=== PATIENT | female | born 1980 | race Caucasian/White ===

== ENCOUNTER 2016-11-09 12:15 | Outpatient (CLI) | payer BC, MEDICAID ==
[~2016-11-09] VITALS: Ht 160 cm; Wt 117.3 kg
[2016-11-09] MEDS ORDERED: PRENATAL1 TA7 PO (12:19)
[2016-11-09] MEDS ORDERED: VITAMIN D 400400 IU PO (12:20)
[2016-11-09] MEDS ORDERED: NATURAL IRON65 MG PO (12:20)
[2016-11-09 12:30] VITALS: BP 120/62; PULSE 75; TEMP 98.6
[2016-11-09 13:08] VITALS: BP 117/60; PULSE 67
== END 2016-11-09 13:20 | disposition home or self-care (01) ==
LOC: LDRO 12:15
DX: O36.8130 Decreased fetal movements, third trimester, not applicable or unspecified (principal); Z3A.28 28 weeks gestation of pregnancy

== ENCOUNTER → 2016-11-16 | Outpatient (CLI) | payer BC, MEDICAID ==
[~2016-11-16] MED LIST: NATURAL IRON65 MG PO; PRENATAL1 TA7 PO; VITAMIN D 400400 IU PO
== END ==
LOC: SUN.DIA 08:41
DX: O24.419 Gestational diabetes mellitus in pregnancy, unspecified control (principal); Z3A.30 30 weeks gestation of pregnancy; Z71.3 Dietary counseling and surveillance
CPT/HCPCS: G0108

== ENCOUNTER → 2016-11-25 | Outpatient (CLI) | payer BC, MEDICAID | LOC: SUN.DIA 08:31 | DX: O24.419 Gestational diabetes mellitus in pregnancy, unspecified control (principal); Z3A.32 32 weeks gestation of pregnancy; Z71.3 Dietary counseling and surveillance; Z87.891 Personal history of nicotine dependence | CPT/HCPCS: G0108 ==

== ENCOUNTER 2016-12-09 12:40 | Inpatient (IN) | payer BC, MEDICAID ==
[~2016-12-09] VITALS: Ht 157.5 cm; Wt 119.5 kg
[2017-01-28] VITALS (19 sets, daily range): BP systolic 92–123; BP diastolic 52–74; PULSE 50–78; TEMP 97.6–98.4
[2017-01-28 07:32] LABS: BASO % 0.3 % (0.0-2.0); EOS # 0.1 (0.0-0.7); EOS % 1.5 % (0-4.0); GRAN # 5.6 (1.4-6.5); GRAN % 76.7 % (42.2-75.2); LYMPH # 1.2 (1.2-3.4); LYMPH % 15.8 % (20.0-51.0); MEAN CELL VOLUME 76 fl (80.0-100.0); MEAN CORPUSCULAR HGB CONC 31 g/dl (33.0-37.0); MEAN PLATELET VOLUME 11.8 fl (7.4-10.4); MONO # 0.4 (0.1-0.6); PLATELET COUNT 213 K/mm3 (130-400); RED BLOOD COUNT 4.28 M/mm3 (4.10-5.30); REDCELL DISTRIBUTION WIDTH-CV 16.2 % (11.5-14.5); WHITE BLOOD COUNT 7.3 K/mm3 (4.8-10.8)
[2017-01-28 07:34] LABS: HEMATOCRIT 32.4 % (37.0-47.0); HEMOGLOBIN 10.1 g/dl (12.5-16.0); MEAN CORPUSCULAR HEMOGLOBIN 24 pg (27.0-31.0)
[2017-01-29 03:30] VITALS: BP 93/49; PULSE 65; TEMP 97.5
[2017-01-29] MEDS ORDERED: IBU800 M1 PO (08:43)
[2017-01-29] MEDS ORDERED: PERCOCET 325 MG1 TA2 PO (08:44)
[2017-01-29 09:00] VITALS: BP 106/50; PULSE 61; TEMP 97.9
[2017-01-29 11:42] VITALS: BP 147/74; PULSE 88; TEMP 97.8
[2017-01-29 16:11] VITALS: BP 121/81; PULSE 76; TEMP 97.6
[2017-01-29 20:35] VITALS: BP 140/79; PULSE 83; TEMP 98.5
[2017-01-30 10:38] VITALS: BP 134/79; PULSE 76
[2017-01-30 16:50] VITALS: BP 129/57; PULSE 73; TEMP 98.5
[2017-01-30 20:04] VITALS: BP 128/70; PULSE 77; TEMP 98.7
[2017-01-31 08:12] VITALS: BP 128/63; PULSE 60; TEMP 97.9
[2017-01-31 16:40] VITALS: BP 117/60; PULSE 59; TEMP 97.8
[2017-01-31 20:05] VITALS: BP 144/76; PULSE 83; TEMP 97.5
[2017-02-01 07:00] VITALS: BP 117/60; PULSE 70; TEMP 97.5
== END 2017-02-01 12:20 | disposition home or self-care (01) | DRG 765 ==
LOC: EDSTATUS 12-26 06:36 → LDRO 12-26 12:40 → OB 01-28 05:41 → LDR 01-28 06:39 → OB 02-01 12:20
PROVIDERS: Obstetrics & Gynecology
PROC: 10D00Z1 Extraction of Products of Conception, Low, Open Approach (ICD-10-PCS; principal; 2017-01-28)
DX: O24.420 Gestational diabetes mellitus in childbirth, diet controlled (principal); O75.3 Other infection during labor; N30.10 Interstitial cystitis (chronic) without hematuria; O48.0 Post-term pregnancy; O99.344 Other mental disorders complicating childbirth; F43.12 Post-traumatic stress disorder, chronic; F20.9 Schizophrenia, unspecified; Z3A.40 40 weeks gestation of pregnancy; Z37.0 Single live birth
CPT/HCPCS: J0690; J1885; J2270; J2405; J2590; J2704; J7120

== ENCOUNTER 2017-08-11 14:46 | Outpatient (RCR) | payer OTHER ==
[~2017-08-11 14:46] MED LIST changes: +IBU800 M1 PO; +PERCOCET 325 MG1 TA2 PO
== END 2017-10-31 | disposition home or self-care (01) ==
LOC: WSOH
DX: M79.645 Pain in left finger(s) (principal)

== ENCOUNTER 2018-07-18 05:26 | Inpatient (IN) | payer BC ==
[2018-07-18] VITALS (16 sets, daily range): BP systolic 96–131; BP diastolic 46–78; PULSE 58–79; TEMP 97.6–98.2
[~2018-07-18] VITALS: Ht 157.6 cm; Wt 122.7 kg
[~2018-07-18 05:26] MED LIST changes: +ATIVAN0.5 MG PO; +BYSTOLIC PO; +CEFTIN 250250 MG/TAB PO; +CLARINEX 5MG5 MG PO; +FLEXERIL5 MG PO; +FLONASE NASAL S16 GM NS; +GEODON60 MG PO; +HCTZ12.5TAB PO; +LEVAQUIN 750MG750 M1 PO; +LORTAB 5/500 501 TAB PO; +MAGIC MOUTH PO; +MERIDIA10 MG PO; +MOTRIN800 MG PO; +NEURONTIN300 MG/CAP PO; +NO HOME MEDICATIONS; +NORCO 325 MG-51 TAB PO; +PHENTERMINE15 MG PO; +SAVELLA50 MG PO; +Tramadol; +ULTRAM 50MG TAB50 MG PO; +VICODIN 5/5001 UDTAB PO; +VITAMIN D5000 IU PO; +VITAMIN D50000 IU PO; +ZITHROMAX 250M250 MG PO; +ZOFRAN 4MG T4 MG/TAB PO; +vitamin d PO; +zpack
--- NOTE | 2018-07-18 05:40 | NUR ---
Ambulatory to unit for repeat scheduled C/S, accompanied by spouse and toddler. Oriented to room, plan of care.
--- NOTE | 2018-07-18 05:55 | NUR ---
Difficult to maintain EFM tracing r/t pt's body habitus.
[2018-07-18] MEDS ORDERED: FERROUSGLUC256MG (06:41)
[2018-07-18] MEDS ORDERED: VITAMIN D31000 I1 PO (06:43)
[2018-07-18 07:01] LABS: BASO % 0.1 % (0.0-2.0); EOS # 0.1 (0.0-0.7); GRAN # 5.5 (1.4-6.5); GRAN % 80.9 % (42.2-75.2); LYMPH # 0.9 (1.2-3.4); LYMPH % 13.9 % (20.0-51.0); MEAN CELL VOLUME 76 fl (80.0-100.0); MEAN CORPUSCULAR HEMOGLOBIN 24 pg (27.0-31.0); MEAN CORPUSCULAR HGB CONC 31 g/dl (33.0-37.0); MEAN PLATELET VOLUME 12.1 fl (7.4-10.4); MONO # 0.3 (0.1-0.6); MONO % 3.7 % (1.7-9.3); PLATELET COUNT 235 K/mm3 (130-400); REDCELL DISTRIBUTION WIDTH-CV 15.7 % (11.5-14.5)
[2018-07-18 07:09] LABS: HEMATOCRIT 32.1 % (37.0-47.0)
--- NOTE | 2018-07-18 10:43 | NUR ---
Initial visit with Grand Father wishing him congratulations for the of his Grandson. Mom has not yet returned to her hospital room. Short Order Fry Cook will follow up later.
--- NOTE | 2018-07-18 19:17 | NUR ---
BEDSIDE REPORT RECEIVED FROM OFF GOING RN, ZEHRA Shoemaker. CARE TAKEN OVER BY THIS RN. FOB AND IN ROOM. BED IN LOW AND LOCKED POSITION. CALL LIGHT AND BELONGINGS IN REACH. PT SPOOL SALVAGER TO RESTOOM. DENIES FURTHER NEEDS.
[2018-07-19 01:24] VITALS: BP 133/77; PULSE 62; TEMP 97.6
--- NOTE | 2018-07-19 04:35 | NUR ---
Pt c/o pain with urination and thinks she may have a UTI. RN encouraged her to talk with physician in the morning when he makes rounds. RN will pass information on to on coming nurse to also discuss with physician.
[2018-07-19 08:10] VITALS: BP 106/54; PULSE 71; TEMP 97.8
--- NOTE | 2018-07-19 11:09 | NUR ---
Initial visit attempt; Family resting, Health Care Facilities Inspector left card of congratulations and information regarding the availability of spiritual care at [facility].
[2018-07-19 17:30] VITALS: BP 131/71; PULSE 67; TEMP 98
[2018-07-19 20:57] VITALS: BP 128/65; PULSE 74; TEMP 98.6
[2018-07-20 07:35] VITALS: BP 132/75; PULSE 75; TEMP 98.2
[2018-07-20] MEDS ORDERED: MOTRIN 600600 MG/TAB PO (08:42)
[2018-07-20] MEDS ORDERED: PERCOCET 325 MG1 TA2 PO (08:43)
[2018-07-20 16:10] VITALS: BP 140/85; PULSE 76; TEMP 98.6
[2018-07-20 21:00] VITALS: BP 121/55; PULSE 79; TEMP 97.6
[2018-07-21 07:54] VITALS: BP 105/60; PULSE 71; TEMP 97.7
== END 2018-07-21 12:20 | disposition home or self-care (01) | DRG 788 ==
LOC: OB 05:26
PROVIDERS: ADMIT Obstetrics & Gynecology
PROC: 10D00Z1 Extraction of Products of Conception, Low, Open Approach (ICD-10-PCS; principal; 2018-07-18)
DX: O34.211 Maternal care for low transverse scar from previous cesarean delivery (principal); N85.8 Other specified noninflammatory disorders of uterus; Z3A.39 39 weeks gestation of pregnancy; Z37.0 Single live birth; O24.420 Gestational diabetes mellitus in childbirth, diet controlled; O75.89 Other specified complications of labor and delivery; M79.7 Fibromyalgia; K58.9 Irritable bowel syndrome, unspecified; F43.10 Post-traumatic stress disorder, unspecified; N30.10 Interstitial cystitis (chronic) without hematuria; E55.9 Vitamin D deficiency, unspecified; F20.9 Schizophrenia, unspecified; O99.344 Other mental disorders complicating childbirth; F32.9 Major depressive disorder, single episode, unspecified; Z87.891 Personal history of nicotine dependence; Z88.1 Allergy status to other antibiotic agents; O99.214 Obesity complicating childbirth; B35.6 Tinea cruris
CPT/HCPCS: J0690; J1885; J2250; J2370; J2405; J2590; J3010; J7120

== ENCOUNTER → 2018-08-02 | Outpatient (CLI) | payer BC ==
[~2018-08-02] MED LIST changes: +FERROUSGLUC256MG; +MOTRIN 600600 MG/TAB PO; +VITAMIN D31000 I1 PO
--- NOTE | 2018-08-02 14:45 | NUR ---
Pt, Kelli Carrasco, presents for outpatient consult with 15 day old baby boy, Jacqui Carrasco. They were referred by Dr. Arias because Jhonatan weight below weight by 5%. Jacqui was born on [birth year]18 by c/section and weighed 8#13.1oz (4000 gms). He was discharged at 9% wt loss (8#0oz 3625 gms) on 07/20/18. He did recieve some formula supplement prior to discharge because of his weight. Pt feels like she has milk volume, and she is still nursing her 18 month old about 3 times daily. She states the nurses prior to the toddler feeding. Today Jacqui weighs 8#5oz (3772 gms), which pt reports is the same as his appointments yesterday with Dr. Arias and [facility]. She states he has eaten this morning at 0800, 1100,1150, 1230, 1300, and now at 1420. She also states he slept from midnight to 0800 this morning. She does not remember any feeding times from yesterday, nor does she know if her fed the baby at night. Supplement yesterday was 2oz formula after the doctor appt.; she states she gives him 1-2 bottles EBM daily, taking about 2-3oz each time if he does not latch on withing 5-10 minutes. Sometimes this is because he is sleepy or crying and not latching. She also states she can pump 4oz per breast, and does this about 2 times daily. Jody eagerly latches and breastfeeds bilaterally for a total of 20 minutes. He sounds like he is swallowing frequently during this time. After feeding he has a weight gain of 1.6oz (44 gms). Pt is advised to place Jacqui back to each breast as he is actively rooting. Weight gain after another 25 minutes of nursing only increased by another 12 gms. Tongue tie is noted, but he seems to hold the nipple in the mouth well. Pt does not c/o nipple soreness. Total gain after feeding is 2oz (56 gms). Jacqui is then supplemented 1oz formula by bottle. POC: Breastfeed every 3 hour, more often if baby is acting hungry. Supplement 1-2oz EBM or formula after . Pump as much as possible after . Recording sheets provided for pt to keep better record as she struggled with relaying the feeding history. FU: Dr. Arias on August 05. Pt is to contact this LC by phone or email re: weight on Wednesday, LC will follow up with pt after she returns to office on August 09. Pt verbalizes understanding, and indicate she will do her best while also taking care of 18 month old and trying to get FOB to assist in more ways.
== END ==
LOC: OLC 14:00
DX: Z39.1 Encounter for care and examination of lactating mother (principal); Z71.89 Other specified counseling

== ENCOUNTER → 2018-11-20 | Outpatient (CLI) | payer BC ==
[2018-11-20 15:01] LABS: ALBUMIN 4.1 gm/dL (3.5-5.0); BILIRUBIN,TOTAL 0.3 mg/dL (0.0-1.0); CALCIUM 9.2 mg/dL (8.4-10.2); CREATININE, serum 0.46 (0.52-1.25); POTASSIUM 4.1 mmol/L (3.4-5.0); TOTAL PROTEIN 7.6 gm/dL (6.4-8.2)
== END ==
LOC: COL.LAB 14:04
PROVIDERS: Family Medicine
DX: E55.9 Vitamin D deficiency, unspecified (principal); R73.03 Prediabetes

== ENCOUNTER 2019-01-13 15:00 | Outpatient (RCR) | payer BC | END 2019-02-13 | disposition home or self-care (01) | LOC: WSC | DX: M79.7 Fibromyalgia (principal) ==

== ENCOUNTER → 2019-02-14 | Outpatient (CLI) | payer BC ==
[2019-02-14 13:51] LABS: ALANINE AMINOTRANSFERASE 19 U/L (9-52); ALKALINE PHOSPHATASE 100 U/L (50-136); ANION GAP 10 mmol/L (7-16); AST,SGOT 22 U/L (15-37); BILIRUBIN,TOTAL < 0.1 mg/dL (0.0-1.0); BLOOD UREA NITROGEN 11 mg/dL (7-17); CALCIUM 8.9 mg/dL (8.4-10.2); CARBON DIOXIDE 25 mmol/L (22-30); CHLORIDE 103 mmol/L (98-107); CREATININE, serum 0.48 (0.52-1.25); GLUCOSE 142 mg/dL (74-106); POTASSIUM 3.9 mmol/L (3.4-5.0); SODIUM 139 mmol/L (137-145); TOTAL PROTEIN 7.2 gm/dL (6.4-8.2)
== END ==
LOC: COL.LAB 13:19
PROVIDERS: Family Medicine
DX: Z11.3 Encounter for screening for infections with a predominantly sexual mode of transmission (principal)

== ENCOUNTER → 2019-03-02 | Outpatient (CLI) | payer BC | LOC: COL.LAB 14:14 | DX: R30.0 Dysuria (principal) ==

== ENCOUNTER → 2019-03-07 | Outpatient (CLI) | payer BC | LOC: COL.LAB 15:32 | DX: R30.0 Dysuria (principal) ==

== ENCOUNTER → 2019-03-21 | Outpatient (CLI) | payer BC ==
[2019-03-21 16:26] LABS: COLLECTION METHOD CLEAN CATCH
[2019-03-21 16:40] LABS: BASO % 0.5 % (0.0-2.0); EOS # 0.1 (0.0-0.7); EOS % 1.7 % (0-4.0); GRAN # 6.1 (1.4-6.5); GRAN % 72.9 % (42.2-75.2); HEMATOCRIT 38.8 % (37.0-47.0); HEMOGLOBIN 12.3 g/dl (12.5-16.0); LYMPH # 1.8 (1.2-3.4); LYMPH % 21.3 % (20.0-51.0); MEAN CELL VOLUME 81 fl (80.0-100.0); MEAN CORPUSCULAR HEMOGLOBIN 26 pg (27.0-31.0); MEAN CORPUSCULAR HGB CONC 32 g/dl (33.0-37.0); MEAN PLATELET VOLUME 11.1 fl (7.4-10.4); MONO # 0.3 (0.1-0.6); MONO % 3.4 % (1.7-9.3); PLATELET COUNT 261 K/mm3 (130-400); RED BLOOD COUNT 4.79 M/mm3 (4.10-5.30); REDCELL DISTRIBUTION WIDTH-CV 13.4 % (11.5-14.5)
[2019-03-21 16:48] LABS: MUCOUS Present /lpf; PH 5 (5-8); URINE APPEARANCE Cloudy; URINE BACTERIA None Seen /hpf; URINE BILIRUBIN Negative (NEGATIVE); URINE BLOOD Negative (NEGATIVE); URINE COLOR Yellow; URINE GLUCOSE Negative (NEGATIVE); URINE KETONE Negative (NEGATIVE); URINE LEUKOCYTE ESTERASE 2+ (NEGATIVE); URINE NITRATE Negative (NEGATIVE); URINE PROTEIN(semi-quant) Negative (NEGATIVE); URINE UROBILINOGEN Negative (NEGATIVE)
== END ==
LOC: COL.LAB 15:13
PROVIDERS: Family Medicine
DX: Z32.00 Encounter for pregnancy test, result unknown (principal); D50.9 Iron deficiency anemia, unspecified; R73.03 Prediabetes; R39.9 Unspecified symptoms and signs involving the genitourinary system

== ENCOUNTER → 2019-05-16 | Outpatient (CLI) | payer BC | LOC: MHCPAIN 15:29 | DX: M47.817 Spondylosis without myelopathy or radiculopathy, lumbosacral region (principal); M54.16 Radiculopathy, lumbar region | CPT/HCPCS: G0463 ==

== ENCOUNTER → 2019-05-19 | Outpatient (CLI) | payer BC | LOC: MC.RAD 05-08 13:00 | DX: N64.89 Other specified disorders of breast (principal); R92.2 Inconclusive mammogram; N63.10 Unspecified lump in the right breast, unspecified quadrant; N63.20 Unspecified lump in the left breast, unspecified quadrant | CPT/HCPCS: G0279 ==

== ENCOUNTER 2019-07-05 15:15 | Outpatient (RCR) | payer BC | END 2019-07-24 | disposition home or self-care (01) | LOC: WSC | DX: M79.7 Fibromyalgia (principal); M54.5 Low back pain; G89.29 Other chronic pain ==

== ENCOUNTER 2019-12-23 17:36 | Emergency (ER) | payer BC ==
[~2019-12-23] VITALS: Ht 157.5 cm; Wt 118.2 kg
[2019-12-23 17:42] VITALS: BP 128/84; TEMP 98.9
[2019-12-23 18:49] LABS: BASO % 0.4 % (0.0-2.0); EOS # 0.1 (0.0-0.7); EOS % 1.4 % (0-4.0); GRAN # 6.5 (1.4-6.5); HEMATOCRIT 38.5 % (37.0-47.0); HEMOGLOBIN 12.1 g/dl (12.5-16.0); LYMPH # 1.5 (1.2-3.4); LYMPH % 17.9 % (20.0-51.0); MEAN CELL VOLUME 81 fl (80.0-100.0); MEAN CORPUSCULAR HEMOGLOBIN 26 pg (27.0-31.0); MEAN CORPUSCULAR HGB CONC 31 g/dl (33.0-37.0); MEAN PLATELET VOLUME 11.2 fl (7.4-10.4); MONO # 0.4 (0.1-0.6); MONO % 4.1 % (1.7-9.3); PLATELET COUNT 250 K/mm3 (130-400); RED BLOOD COUNT 4.73 M/mm3 (4.10-5.30); REDCELL DISTRIBUTION WIDTH-CV 13.7 % (11.5-14.5)
[2019-12-23 19:01] LABS: ALBUMIN 4.1 gm/dL (3.5-5.0); BILIRUBIN,TOTAL 0.3 mg/dL (0.0-1.0); C-REACTIVE PROTEIN 4.4 mg/dL (0.0-0.9); CALCIUM 9.1 mg/dL (8.4-10.2); CREATININE, serum 0.57 (0.52-1.25); POTASSIUM 3.6 mmol/L (3.4-5.0); TOTAL PROTEIN 7.8 gm/dL (6.4-8.2)
[2019-12-23] MEDS ORDERED: PREDNISONE20 MG PO (19:20)
[2019-12-23 19:41] VITALS: PULSE 80
== END 2019-12-23 19:43 | disposition home or self-care (01) ==
LOC: COL.ER 17:36
PROVIDERS: Emergency Medicine
DX: L29.9 Pruritus, unspecified (principal); Z32.02 Encounter for pregnancy test, result negative; Z88.1 Allergy status to other antibiotic agents; Z88.8 Allergy status to other drugs, medicaments and biological substances
CPT/HCPCS: J7512

== ENCOUNTER → 2020-01-16 | Outpatient (CLI) | payer BC ==
[~2020-01-16] MED LIST changes: +PREDNISONE20 MG PO
[2020-01-16 15:10] LABS: BASO % 0.4 % (0.0-2.0); EOS # 0.2 (0.0-0.7); EOS % 2.4 % (0-4.0); GRAN # 5.9 (1.4-6.5); GRAN % 74.3 % (42.2-75.2); HEMOGLOBIN 11.4 g/dl (12.5-16.0); LYMPH # 1.5 (1.2-3.4); LYMPH % 18.5 % (20.0-51.0); MEAN CELL VOLUME 81 fl (80.0-100.0); MEAN CORPUSCULAR HEMOGLOBIN 25 pg (27.0-31.0); MEAN CORPUSCULAR HGB CONC 32 g/dl (33.0-37.0); MEAN PLATELET VOLUME 10.8 fl (7.4-10.4); MONO # 0.3 (0.1-0.6); MONO % 3.9 % (1.7-9.3); PLATELET COUNT 265 K/mm3 (130-400); RED BLOOD COUNT 4.48 M/mm3 (4.10-5.30); REDCELL DISTRIBUTION WIDTH-CV 13.5 % (11.5-14.5)
[2020-01-16 15:20] LABS: HEMATOCRIT 36.2 % (37.0-47.0)
[2020-01-16 15:44] LABS: ERYTHROCYTE SEDIMENTATION RATE 33 mm/hr (0-20)
== END ==
LOC: COL.LAB 14:38
PROVIDERS: Family Medicine
DX: R79.82 Elevated C-reactive protein (CRP) (principal)

== ENCOUNTER → 2020-01-19 | Outpatient (CLI) | payer BC ==
[2020-01-19 16:19] LABS: BASO % 0.3 % (0.0-2.0); EOS # 0.2 (0.0-0.7); EOS % 2.1 % (0-4.0); GRAN # 6.4 (1.4-6.5); GRAN % 73.8 % (42.2-75.2); HEMOGLOBIN 11.8 g/dl (12.5-16.0); LYMPH # 1.6 (1.2-3.4); LYMPH % 18.9 % (20.0-51.0); MEAN CELL VOLUME 80 fl (80.0-100.0); MEAN CORPUSCULAR HEMOGLOBIN 26 pg (27.0-31.0); MEAN CORPUSCULAR HGB CONC 32 g/dl (33.0-37.0); MEAN PLATELET VOLUME 11.3 fl (7.4-10.4); MONO # 0.4 (0.1-0.6); MONO % 4.7 % (1.7-9.3); PLATELET COUNT 296 K/mm3 (130-400); RED BLOOD COUNT 4.61 M/mm3 (4.10-5.30); REDCELL DISTRIBUTION WIDTH-CV 13.5 % (11.5-14.5)
[2020-01-19 16:21] LABS: HEMATOCRIT 36.7 % (37.0-47.0)
[2020-01-19 16:33] LABS: IRON,SERUM 42 ug/dL (35-150)
[2020-01-19 16:42] LABS: TOTAL IRON BINDING CAPACITY 365 ug/dL (265-497)
[2020-01-20 12:33] LABS: ANA SCREEN with REFLEX Negative (Negative)
== END ==
LOC: COL.LAB 15:20
PROVIDERS: Family Medicine
DX: M25.50 Pain in unspecified joint (principal); R79.82 Elevated C-reactive protein (CRP); D50.9 Iron deficiency anemia, unspecified

== ENCOUNTER → 2020-02-26 | Outpatient (CLI) | payer BC ==
[2020-02-27 20:00] LABS: FOLATE (FOLIC ACID) 14.6 ng/mL (7.0-31.4)
== END ==
LOC: COL.LAB 16:10
PROVIDERS: Psychiatry & Neurology Neurology
DX: E55.9 Vitamin D deficiency, unspecified (principal); M79.7 Fibromyalgia; E53.9 Vitamin B deficiency, unspecified; E61.1 Iron deficiency; E53.8 Deficiency of other specified B group vitamins; E61.2 Magnesium deficiency; Z79.899 Other long term (current) drug therapy

== ENCOUNTER 2020-03-06 15:30 | Outpatient (RCR) | payer BC ==
[~2020-03-06 15:30] MED LIST changes: +CYMBALTA 30MG30 MG; +D3-5050000 IU PO; +FOLIVANE-OB1 CAP PO; -PRENATAL1 TA7 PO; +VITAMIN C500 MG
== END 2020-04-22 | disposition home or self-care (01) ==
LOC: WSC
DX: M54.5 Low back pain (principal); R51.9 Headache, unspecified

== ENCOUNTER 2020-03-11 08:33 | Outpatient (CLI) | payer BC ==
[~2020-03-11] VITALS: Ht 154.9 cm; Wt 127.3 kg
[2020-03-11] VITALS (7 sets, daily range): BP systolic 92–125; BP diastolic 42–87; PULSE 59–72
[2020-03-11 09:42] LABS: BILIRUBIN,TOTAL 0.4 mg/dL (0.0-1.0); CALCIUM 8.8 mg/dL (8.4-10.2); CHOLESTEROL RISK RATIO 2.7; CREATININE, serum 0.47 (0.52-1.25); POTASSIUM 4.1 mmol/L (3.4-5.0); TOTAL PROTEIN 7.1 gm/dL (6.4-8.2)
[2020-03-11 10:12] LABS: THYROID STIMULATING HORMONE 4.18 uIU/mL (0.465-4.680)
--- NOTE | 2020-03-11 12:47 | NUR ---
Pt assisted out by wheelchair to 's car with personal belongings after review of discharge instructions.
== END 2020-03-11 12:48 | disposition home or self-care (01) ==
LOC: COL.LAB 08:33 → COL.RAD 08:33
PROVIDERS: Psychiatry & Neurology Neurology
DX: M51.27 Other intervertebral disc displacement, lumbosacral region (principal); M48.07 Spinal stenosis, lumbosacral region; M48.061 Spinal stenosis, lumbar region without neurogenic claudication; M51.36 Other intervertebral disc degeneration, lumbar region
CPT/HCPCS: Q9965

== ENCOUNTER → 2020-04-09 | Outpatient (CLI) | payer BC | LOC: MHCPAIN 14:02 | DX: M47.816 Spondylosis without myelopathy or radiculopathy, lumbar region (principal); M79.2 Neuralgia and neuritis, unspecified; G89.29 Other chronic pain; E66.01 Morbid (severe) obesity due to excess calories; Z68.43 Body mass index [BMI] 50.0-59.9, adult | CPT/HCPCS: G0463 ==

== ENCOUNTER → 2020-06-06 | Outpatient (CLI) | payer BC ==
[2020-06-06 12:33] LABS: COLLECTION METHOD CLEAN CATCH
[2020-06-06 12:43] LABS: BASO % 0.5 % (0.0-2.0); EOS # 0.2 (0.0-0.7); GRAN # 6.5 (1.4-6.5); GRAN % 73.6 % (42.2-75.2); HEMATOCRIT 39.2 % (37.0-47.0); HEMOGLOBIN 12.2 g/dl (12.5-16.0); LYMPH # 1.6 (1.2-3.4); LYMPH % 18.5 % (20.0-51.0); MEAN CELL VOLUME 81 fl (80.0-100.0); MEAN CORPUSCULAR HEMOGLOBIN 25 pg (27.0-31.0); MEAN CORPUSCULAR HGB CONC 31 g/dl (33.0-37.0); MEAN PLATELET VOLUME 11.3 fl (7.4-10.4); MONO # 0.4 (0.1-0.6); MONO % 4.8 % (1.7-9.3); PLATELET COUNT 297 K/mm3 (130-400); RED BLOOD COUNT 4.82 M/mm3 (4.10-5.30); REDCELL DISTRIBUTION WIDTH-CV 13.8 % (11.5-14.5)
[2020-06-06 12:46] LABS: BILIRUBIN,TOTAL 0.3 mg/dL (0.0-1.0); CALCIUM 9.1 mg/dL (8.4-10.2); CREATININE, serum 0.44 (0.52-1.25); MUCOUS Present /lpf; PH 7 (5-8); POTASSIUM 4.1 mmol/L (3.4-5.0); SQUAMOUS EPITHELIAL 20-50 /hpf; TOTAL PROTEIN 7.3 gm/dL (6.4-8.2); URINE APPEARANCE Cloudy; URINE BACTERIA Rare /hpf; URINE BILIRUBIN Negative (NEGATIVE); URINE BLOOD Negative (NEGATIVE); URINE COLOR Yellow; URINE GLUCOSE Negative (NEGATIVE); URINE KETONE Negative (NEGATIVE); URINE LEUKOCYTE ESTERASE 2+ (NEGATIVE); URINE NITRATE Negative (NEGATIVE); URINE PROTEIN(semi-quant) 1+ (NEGATIVE); URINE UROBILINOGEN Negative (NEGATIVE)
[2020-06-06 13:16] LABS: THYROID STIMULATING HORMONE 2.68 uIU/mL (0.465-4.680)
== END ==
LOC: COL.LAB 11:23
PROVIDERS: Family Medicine
DX: Z32.00 Encounter for pregnancy test, result unknown (principal); E55.9 Vitamin D deficiency, unspecified; R10.9 Unspecified abdominal pain; M79.89 Other specified soft tissue disorders

== ENCOUNTER → 2020-06-19 | Outpatient (CLI) | payer BC | LOC: COL.RAD 09:28 | DX: N30.10 Interstitial cystitis (chronic) without hematuria (principal); M79.7 Fibromyalgia; R31.9 Hematuria, unspecified; K58.9 Irritable bowel syndrome, unspecified ==

== ENCOUNTER → 2020-07-12 | Outpatient (CLI) | payer BC ==
[2020-07-12 12:23] LABS: BILIRUBIN,TOTAL 0.3 mg/dL (0.0-1.0); CALCIUM 8.8 mg/dL (8.4-10.2); CHOLESTEROL RISK RATIO 3.2; CREATININE, serum 0.47 (0.52-1.25)
[2020-07-12 12:54] LABS: THYROID STIMULATING HORMONE 2.04 uIU/mL (0.465-4.680)
== END ==
LOC: COL.LAB 11:21
PROVIDERS: Psychiatry & Neurology Neurology
DX: G47.33 Obstructive sleep apnea (adult) (pediatric) (principal); M54.9 Dorsalgia, unspecified; M79.7 Fibromyalgia

== ENCOUNTER → 2020-07-18 | Outpatient (CLI) | payer BC | LOC: COL.RAD 09:23 | DX: R16.0 Hepatomegaly, not elsewhere classified (principal); K76.0 Fatty (change of) liver, not elsewhere classified ==

== ENCOUNTER 2020-08-11 10:07 | Emergency (ER) | payer BC ==
[~2020-08-11] VITALS: Ht 154.9 cm; Wt 128.2 kg
[2020-08-11 10:14] VITALS: BP 147/82; TEMP 97.4
[2020-08-11 11:51] LABS: ALBUMIN 3.6 gm/dL (3.5-5.0); BILIRUBIN,TOTAL 0.1 mg/dL (0.0-1.0); CALCIUM 8.8 mg/dL (8.4-10.2); CREATININE, serum 0.5 (0.52-1.25); POTASSIUM 4.2 mmol/L (3.4-5.0); TOTAL PROTEIN 6.8 gm/dL (6.4-8.2)
[2020-08-11 12:04] LABS: BASO % 0.3 % (0.0-2.0); EOS # 0.1 (0.0-0.7); GRAN # 7.4 (1.4-6.5); GRAN % 81.2 % (42.2-75.2); HEMATOCRIT 37.2 % (37.0-47.0); HEMOGLOBIN 11.3 g/dl (12.5-16.0); LYMPH # 1.3 (1.2-3.4); LYMPH % 13.7 % (20.0-51.0); MEAN CELL VOLUME 83 fl (80.0-100.0); MEAN CORPUSCULAR HEMOGLOBIN 25 pg (27.0-31.0); MEAN CORPUSCULAR HGB CONC 30 g/dl (33.0-37.0); MEAN PLATELET VOLUME 11.8 fl (7.4-10.4); MONO # 0.3 (0.1-0.6); MONO % 2.9 % (1.7-9.3); PLATELET COUNT 270 K/mm3 (130-400); RED BLOOD COUNT 4.46 M/mm3 (4.10-5.30); REDCELL DISTRIBUTION WIDTH-CV 13.9 % (11.5-14.5)
[2020-08-11 15:16] VITALS: PULSE 84
== END 2020-08-11 15:26 | disposition home or self-care (01) ==
LOC: COL.ER 10:07
PROVIDERS: Nurse Practitioner Primary Care
DX: Z34.90 Encounter for supervision of normal pregnancy, unspecified, unspecified trimester (principal); M79.7 Fibromyalgia; Z87.891 Personal history of nicotine dependence; Z88.0 Allergy status to penicillin; Z88.1 Allergy status to other antibiotic agents; Z88.8 Allergy status to other drugs, medicaments and biological substances; Z91.040 Latex allergy status; Z91.041 Radiographic dye allergy status; Z91.048 Other nonmedicinal substance allergy status; Z79.899 Other long term (current) drug therapy

== ENCOUNTER 2020-09-24 22:33 | Emergency (ER) | payer BC ==
[~2020-09-24] VITALS: Ht 157.5 cm; Wt 127.3 kg
[2020-09-25 01:40] LABS: BASO % 0.3 % (0.0-2.0); EOS # 0.3 (0.0-0.7); EOS % 2.8 % (0-4.0); GRAN # 7.2 (1.4-6.5); HEMATOCRIT 37.9 % (37.0-47.0); HEMOGLOBIN 11.8 g/dl (12.5-16.0); LYMPH % 20.3 % (20.0-51.0); MEAN CELL VOLUME 80 fl (80.0-100.0); MEAN CORPUSCULAR HEMOGLOBIN 25 pg (27.0-31.0); MEAN CORPUSCULAR HGB CONC 31 g/dl (33.0-37.0); MEAN PLATELET VOLUME 11.7 fl (7.4-10.4); MONO # 0.4 (0.1-0.6); MONO % 4.2 % (1.7-9.3); PLATELET COUNT 283 K/mm3 (130-400); RED BLOOD COUNT 4.73 M/mm3 (4.10-5.30); REDCELL DISTRIBUTION WIDTH-CV 13.8 % (11.5-14.5)
[2020-09-25 03:22] VITALS: BP 121/79; PULSE 85; TEMP 98.2
== END 2020-09-25 03:22 | disposition home or self-care (01) ==
LOC: COL.ER 22:33
PROVIDERS: Emergency Medicine
DX: O02.1 Missed abortion (principal)

== ENCOUNTER → 2021-03-07 | Outpatient (CLI) | payer BC ==
[~2021-03-07] MED LIST changes: +CARAFATE 1GM1 G PO; +PEN-VEE K500 MG PO; +PEPCID 20MG TAB20 MG PO; +TESSALON PERLE200 MG PO; +ZOFRAN8 MG PO
== END ==
LOC: COL.RAD 09:11
DX: K76.0 Fatty (change of) liver, not elsewhere classified (principal); K21.9 Gastro-esophageal reflux disease without esophagitis